=== PATIENT | female | born 1990 | race Caucasian/White ===

== ENCOUNTER → 2017-11-03 13:24 | Outpatient (CLI) | payer OTHER, SELFPAY ==
[2017-11-03 17:42] LABS: Chlamydia Trachomatis by PCR Negative (Negative); Neisserai gonorrhoeae by PCR Negative (Negative); Probe Check PASS; Sample Adequacy Control PASS; Specimen Processing Control PASS
[2017-11-05 12:09] LABS: HPV Reflexed? NOT INDICATED
== END ==
PROVIDERS: Visit Provider Obstetrics & Gynecology
DX: Z12.4 Encounter for screening for malignant neoplasm of cervix (principal); Z11.3 Encounter for screening for infections with a predominantly sexual mode of transmission
CPT/HCPCS: 87491; 87591; 88175; G0145

== ENCOUNTER → 2017-11-26 14:32 | Outpatient (CLI) | payer OTHER, SELFPAY ==
--- NOTE | 2017-11-26 14:32 | DT_ITS ---
This patient was seen during an EMR downtime November 22, 2017 - November 29, 2017. This patient may have a combination of paper and electronic documentation or all paper documentation. All documentation is viewable within the e-chart portion of [facility] for each patient visit.
[2017-11-26 19:06] LABS: Color, Urine YELLOW (Yellow)
[2017-11-26 19:07] LABS: Glucose, Dipstick NEGATIVE (Normal); Ketone-Dipstick Negative (Negative); Urine Bilirubin Dipstick Negative (Negative); Urine Clarity Clear (Clear); Urine pH 6.5 (5.0 - 8.0)
[2017-11-26 19:08] LABS: Leukocyte Esterase-Dipstick Negative /ul (Negative); Nitrite-Dipstick Negative (Negative); Occult Blood-Urine 25 /ul (Negative); Protein-Dipstick Negative (Negative); Urine Urobilinogen Normal (Normal)
[2017-11-26 19:17] LABS: Hematocrit 39.2 % (37-47); Hemoglobin 13.4 g/dl (12.0-15.0); Mean Corp Hgb Conc 34.2 g/gl (32-36); Mean Corpuscular Hgb 31.8 pg (27.0-32.0); Mean Corpuscular Volume 93.1 fL (81-99); RBC Distribution Width CV 13.4 % (11.6-14.6); RBC Distribution Width SD 45.6 fl (35.1-43.9); Red Blood Count 4.21 M/mm3 (4.2-5.4); White Blood Count 10.1 K/mm3 (4.4-11.0)
[2017-11-26 19:18] LABS: Absolute Lymphocyte Count 3.45 X10^3/ul (0.83-4.51); Absolute Neutrophil Count 5.7 X10^3/uL (2.0-7.7); Basophil# 0.02 X10^3/uL; Basophil% 0.2 % (0-1); Eosinophil# 0.08 X10^3/uL; Eosinophils% 0.8 % (0-5); Lymphocyte # 3.45 X10^3/ul (4.0); Lymphocyte % 34.1 % (19-41); Mean Platelet Vol. 12.4 fl (6.2-12.0); Monocyte# 0.78 X10^3/uL; Monocyte% 7.7 % (0-10); Neutrophil # 5.72 X10^3/uL (2.7-7.7); Neutrophil % 56.6 % (47-70); POSITIVE COUNT NO; POSITIVE DIFFERENTIAL NO; POSITIVE MORPHOLOGY NO; Platelet Count 249 K/mm3 (150-450)
[2017-11-27 06:05] LABS: Thyroid Stim Hormone (TSH) < 0.01 uIU/mL (0.358-3.74)
[2017-11-27 06:07] LABS: Amphetamine Urine VISTA NEGATIVE (<1000 ng/mL); Barbiturate Urine VISTA NEGATIVE (< 200 ng/mL); Benzodiazepine Urine VISTA NEGATIVE (< 200 ng/mL); Cocaine Urine VISTA NEGATIVE (< 300 ng/mL); Ecstacy Urine VISTA NEGATIVE (< 500 ng/mL); Methadone Urine VISTA NEGATIVE (< 300 ng/mL); PCP Urine VISTA NEGATIVE (< 25 ng/mL); THC Urine VISTA NEGATIVE (< 50 ng/mL)
[2017-11-29 10:08] LABS: HIV - WCH Non-Reactive (Nonreactive); Rubella IgG 40.5 IU/mL
[2017-12-03 03:47] LABS: Prenatal RPR NONREACTIVE (NONREACTIVE)
[2017-12-03 07:09] LABS: HEPATITIS B SURFACE AG Negative (Negative); Hep C Antibodies <0.1 s/co ratio (0.0-0.9)
== END ==
PROVIDERS: Visit Provider Obstetrics & Gynecology
DX: Z34.81 Encounter for supervision of other normal pregnancy, first trimester (principal)
CPT/HCPCS: 36415; 80307; 81002; 84443; 85025; 86703; 86762; 86803; 87340

== ENCOUNTER → 2017-12-31 14:34 | Outpatient (CLI) | payer OTHER, SELFPAY ==
[2017-12-31 17:10] LABS: Free T3 2.7 pg/mL (2.18-3.98); T4 Free Direct 1.23 ng/dL (0.76-1.46); Thyroid Stim Hormone (TSH) 0.07 uIU/mL (0.358-3.74)
== END ==
PROVIDERS: Visit Provider Obstetrics & Gynecology
DX: O99.282 Endocrine, nutritional and metabolic diseases complicating pregnancy, second trimester (principal); E03.9 Hypothyroidism, unspecified; Z3A.00 Weeks of gestation of pregnancy not specified
CPT/HCPCS: 36415; 84439; 84443; 84481

== ENCOUNTER → 2018-03-28 11:27 | Outpatient (CLI) | payer OTHER, SELFPAY ==
[2018-03-28 13:45] LABS: Hematocrit 35.5 % (37-47); Hemoglobin 11.9 g/dl (12.0-15.0); Mean Corp Hgb Conc 33.5 g/gl (32-36); Mean Corpuscular Hgb 32.6 pg (27.0-32.0); Mean Corpuscular Volume 97.3 fL (81-99); Platelet Count 228 K/mm3 (150-450); RBC Distribution Width CV 13.5 % (11.6-14.6); RBC Distribution Width SD 46.2 fl (35.1-43.9); Red Blood Count 3.65 M/mm3 (4.2-5.4); White Blood Count 14.7 K/mm3 (4.4-11.0)
[2018-03-28 13:48] LABS: Scan Indicated on CBC? Y/N NO
[2018-03-28 14:03] LABS: Free T3 2.6 pg/mL (2.18-3.98); Glucose Challenge Gest 1H 50g 112 mg/dL (70-140); T4 Free Direct 1.15 ng/dL (0.76-1.46); Thyroid Stim Hormone (TSH) 0.23 uIU/mL (0.358-3.74)
== END ==
PROVIDERS: Visit Provider Obstetrics & Gynecology
DX: Z34.82 Encounter for supervision of other normal pregnancy, second trimester (principal)
CPT/HCPCS: 36415; 82950; 84439; 84443; 84481; 85027

== ENCOUNTER → 2018-05-19 09:13 | Outpatient (CLI) | payer OTHER, SELFPAY ==
[2018-05-19 10:49] LABS: T4 Free Direct 1.28 ng/dL (0.76-1.46); Thyroid Stim Hormone (TSH) 0.63 uIU/mL (0.358-3.74)
--- OUTSIDE RECORDS SUMMARY | 2018-07-14 10:15 | XMS RPT_ITS ---
:1990 Author Organization OHIP Care Team Providers Name Role Phone NO PRIMARY CAREMD Primary Care Unavailable KELVIN JORGE Attending Unavailable CARLENE SPANGLER Referring Unavailable NO PRIMARY MD PHANI Primary Care Unavailable KELVIN JORGE Referring Unavailable FERNANDEZ HOFFMAN Attending Unavailable NO PRIMARY CAREMD Primary Care Unavailable KELVIN JORGE Referring Unavailable JUVENTINO HUMMEL Attending Unavailable NO PRIMARY CAREMD Primary Care Unavailable KELVIN JORGE Referring Unavailable HALEY GARZA Attending Unavailable NO PRIMARY CAREMD Primary Care Unavailable KELVIN JORGE Referring Unavailable FERNANDEZ HOFFMAN Attending Unavailable NO PRIMARY CAREMD Primary Care Unavailable KELVIN JORGE Attending Unavailable CARLENE SPANGLER Referring Unavailable NO PRIMARY MD PHANI Primary Care Unavailable CARLENE SPANGLER Referring Unavailable JUVENTINO HUMMEL Attending Unavailable NO PRIMARY MD PHANI Primary Care Unavailable CARLENE SPANGLER Referring Unavailable JUVENTINO HUMMEL Attending Unavailable PROVIDER, UNKNOWN Attending Unavailable PROVIDER, UNKNOWN Referring Unavailable No, PCP Primary Care Unavailable PROVIDER, UNKNOWN Referring Unavailable No, PCP Primary Care Unavailable PROVIDER, UNKNOWN Attending Unavailable Kaikos, Carlene Attending Unavailable Benekos, Carlene Attending Unavailable Benekos, Carlene Attending Unavailable Benekos, Carlene Attending Unavailable Zenia, Kelvin Attending Unavailable Zenia, Kelvin Referring Unavailable Primay Care Physicia, No Primary Care Unavailable Garza, Haley Attending Unavailable Garza, Haley Referring Unavailable Primay Care Physicia, No Primary Care Unavailable PROBLEMS PROBLEMS DATE TYPE CONDITION / CODE ATTENDING STATUS SOURCE 05/30/2018 Unknown Z36.85 - Encounter Garza, Active [place] for [place] Community screening for Hospital Streptococcus B / Repository Z36.85(ICD-10) 05/19/2018 Unknown E05.90 - Zenia, Active [place] Thyrotoxicosis, Kelvin Community unspecified without Hospital thyrotoxic crisis Repository or storm / E05.90(ICD-10) 03/28/2018 Unknown Z34.82 - Encounter Carlene Spangler Active [place] for supervision of Community other normal Hospital , second Repository trimester / Z34.82(ICD-10) 12/31/2017 Unknown E03.9 - Carlene Spangler Active [place] Hypothyroidism, Community unspecified / Hospital E03.9(ICD-10) Repository 12/15/2017 Unknown Z34.81 - Encounter Carlene Spangelr Active [place] for supervision of Community other normal Hospital , first Repository trimester / Z34.81(ICD-10) 11/04/2017 Unknown Z12.4 - Encounter Carlene Spangler Active [place] for screening for Community malignant neoplasm Hospital of cervix / Repository Z12.4(ICD-10) 11/04/2017 Unknown Z11.3 - Encounter Carlene Spangler Active [place] for screening for Community infections with a Hospital predominantly Repository sexual mode of transmission / Z11.3(ICD-10) 10/27/2017 Admitting Mild hyperemesis Unknown [facility] Diagnosis gravidarum / System O21.0(ICD-10) Repository 10/27/2017 Admitting Less than 8 weeks Unknown Active [facility] Diagnosis gestation of System / Repository Z3A.01(ICD-10) 10/27/2017 Admitting Nausea / Unknown Active [facility] Diagnosis R11.0(ICD-10) System Repository 06/28/2017 Admitting Constipation, Unknown Active [facility] Diagnosis unspecified / System K59.00(ICD-10) Repository 06/28/2017 Admitting Generalized Unknown Active [facility] Diagnosis abdominal pain / System R10.84(ICD-10) Repository 06/28/2017 Admitting Unspecified Unknown Active [facility] Diagnosis abdominal pain / System R10.9(ICD-10) Repository PROCEDURES PROCEDURES No Procedure Records FoundRESULTS RESULTS PROGRESS NOTE Observed: 06/06/2018 Status: COMPLETED Source: [place] 2:00 PM [facility] REPOSITORY Routine Visit Subjective: Vida Bearden is a 27 y/o at 37w6d being seen today for her obstetrical visit. She reports irregular contractions. Denies VB, LOF, or decreased FM. Her is now planning a vasectomy. She is accompanied by her mother. Review of Systems Review of Systems Constitutional: Negative. Gastrointestinal: Negative for abdominal pain. Genitourinary: Negative for vaginal bleeding and vaginal discharge. Objective: BP 106/60 Ht 162.6 cm Wt 58.8 kg (129 lb 11.2 oz) LMP 09/14/2017 Physical Exam FHT: Positive (134) Presentation: Cephalic Uterine Size: S=D Pelvic Exam: No pelvic exam this visit US: Estimated weight and amniotic fluid volume are appropriate for gestational age. Assessment/Plan: 27 y.o. at 37w6d with Active Non-Hospital Problems Diagnosis Date Noted heart rate decelerations affecting management of mother 05/16/2018 Resolved 05/23. kick counts recommended. Seek care with any decreased movement. History of 2 sections 05/09/2018 MFM consultation complete. Patient extensively counseled on risks of TOLAC. She expressed understanding of this counseling and is considering her options. She does not want additional children. Patient counseled that the laborist or covering MFM at the time of her delivery may be uncomfortable offering TOLAC. Mode of delivery is at the discretion of the covering physician. She expressed understanding of this counseling. Poor dentition 05/09/2018 Herpes simplex infection during 05/09/2018 Continue Valtrex prophylaxis. Report if prodromal symptoms or outbreak occurs. Former smoker 05/09/2018 Quit after learning of Supervision of high risk in third trimester 05/09/2018 PLAN OF CARE (transfer of care from [facility]) MD/OB APPOINTMENTS Genetic screening: declined How often should patient be evaluated? Q 2 weeks from 28 to 36 weeks then weekly until delivery Work restrictions: None EVALUATION surveillance: PRN Ultrasound: Growth in 4 weeks DELIVERY PLAN Hospital: [facility] per pt (CG) Desires TOLAC GBS culture: 05/30 neg Contraception: plans vasectomy : Yes Would like membrane stripping after 39 weeks Follow up 1 week. Labor precautions reviewed. The total patient time of the visit was 15 minutes, of which greater than 50% of the time was spent counseling and coordinating care. Juventino Hummel, DO PROGRESS NOTE Observed: 05/30/2018 Status: COMPLETED Source: [place] 9:30 AM [facility] REPOSITORY Routine Visit Subjective: Vida Bearden is being seen today for her obstetrical visit. She is at 36w6d gestation. Patient reports no bleeding, no cramping, no leaking, no contractions. No genital HSV lesions or prodromal symptoms. Movement: normal. HPI Review of Systems Review of Systems Objective: BP 118/60 Ht 162.6 cm Wt 58.3 kg (128 lb 9.6 oz) LMP 09/14/2017 Physical Exam FHT: Positive Presentation: Unsure Uterine Size: S=D Pelvic Exam: External genitalia without lesions, GBS culture obtained. Assessment: 27 y.o. at 36w6d with Active Non-Hospital Problems Diagnosis Date Noted heart rate decelerations affecting management of mother 05/16/2018 Auscultated with Doppler today. Resolved 05/23. kick counts recommended. Seek care with any decreased movement. History of 2 sections 05/09/2018 MFM consultation complete. Patient extensively counseled on risks of TOLAC. She expressed understanding of this counseling and is considering her options. She does not want additional children. Patient counseled that the laborist or covering MFM at the time of her delivery may be uncomfortable offering TOLAC. Mode of delivery is at the discretion of the covering physician. She expressed understanding of this counseling. Encounter for trial of labor 05/09/2018 Poor dentition 05/09/2018 Herpes simplex infection during 05/09/2018 Continue Valtrex prophylaxis. Report if prodromal symptoms or outbreak occurs. Former smoker 05/09/2018 Quit after learning of Supervision of high risk in third trimester 05/09/2018 PLAN OF CARE (transfer of care from [facility]) MD/OB APPOINTMENTS Genetic screening: declined How often should patient be evaluated? Q 2 weeks from 28 to 36 weeks then weekly until delivery Work restrictions: None EVALUATION surveillance: PRN Ultrasound: Growth in 4 weeks DELIVERY PLAN Hospital: [facility] per pt (CG) Desires TOLAC GBS culture: 05/30 obtained Contraception: Nexplanon vs OCPs : Yes Would like membrane stripping after 39 weeks Follow up weekly until delivery. information and danger sins in provided on AVS. The total patient time of the visit was 15 minutes, of which greater than 50% of the time was spent counseling and coordinating care. GROUP B STREP DNA Collected: 05/30/2018 Status: F Source: PRECIOUS BY PCR 9:30 AM [facility] REPOSITORY Order Comment: Source: Vaginal-Rectal TYPE CODE TESTS RESULT OUT OF RANGE REFERENCE UNITS LAB L8200.0100 Negative Normal GBS TEST Negative RESULT Performed By: #### L8200.0000 #### [facility] [address] [place], [place], [address] Observed: 05/30/2018 Status: F Source: PRECIOUS CULTURE, GROUP B 12:00 AM [facility] REPOSITORY NOHEMI Culture Group B Beta Streptococcus is not isolated. Performed By: #### M100.1800 #### [facility] [address] [place], [address] PROGRESS NOTE Observed: 05/23/2018 Status: COMPLETED Source: [place] 9:30 AM [facility] REPOSITORY Routine Visit Subjective: Vida Bearden is being seen today for her obstetrical visit. She is at 35w6d gestation. Patient reports no complaints, rare contractions. Movement: normal. She is unaccompanied. Vida denies any cramping, contractions, vaginal bleeding, unusual or increase in vaginal discharge, signs and symptoms of pre-eclampsia, or leaking of any fluid. Patient with positive movement. Review of Systems Review of Systems All other systems reviewed and are negative. Objective: BP 100/60 Ht 162.6 cm Wt 58.3 kg (128 lb 9.6 oz) LMP 09/14/2017 Physical Exam FHT: Positive Presentation: Cephalic Assessment: is at 35w6d gestation. 1. Subclinical Hyperthyroidism. Patient had labs done late last week. Results pending. Requested lab to send. 2. HSV. Patient has yet to start her valtrex. She was encouraged to start. 3. Previous CD X2. Patient now ok with epidural with labor. 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 4. See problem list for concerns not addressed in today's visit. Plan: 1. RTC in 1 week. 2. GBS next visit. 3. Labor precautions reviewed. 4. Start Valtrex. 5. Need lab results for TFTs. The total patient time of the visit was 10 minutes, of which greater than 50% of the time was spent counseling and coordinating care. THYROID STIM HORMONE Collected: 05/19/2018 Status: F Source: PRECIOUS (TSH) 9:27 AM [facility] REPOSITORY TYPE CODE TESTS RESULT OUT OF RANGE REFERENCE UNITS LAB L501.9520 0.358-3.74 uIU/mL Normal TSH 0.63 Performed By: #### L501.9520, L506.0400 #### [facility] [address] [place], [place], [address] T4 FREE DIRECT Collected: 05/19/2018 Status: F Source: PRECIOUS 9:27 AM [facility] REPOSITORY TYPE CODE TESTS RESULT OUT OF RANGE REFERENCE UNITS LAB L506.0400 0.76-1.46 ng/dL Normal T4 FREE 1.28 DIRECT Performed By: #### L501.9520, L506.0400 #### [facility] [address] [place], [address] PROGRESS NOTE Observed: 05/16/2018 Status: COMPLETED Source: [place] 10:00 AM [facility] REPOSITORY Initial Visit Subjective: Vida Bearden is being seen today for her transfer of care visit. She is at 34w6d gestation. She is unaccompanied. Vida denies any cramping, contractions, vaginal bleeding, unusual or increase in vaginal discharge, signs and symptoms of pre-eclampsia, or leaking of any fluid. Patient with positive movement. Denies symptoms of hyperthyroidism. Review of Systems Review of Systems All other systems reviewed and are negative. Objective: BP 110/60 Ht 162.6 cm Wt 57.7 kg (127 lb 4.8 oz) LMP 09/14/2017 Physical Exam Nursing note and vitals reviewed. Constitutional: She appears well-developed and well-nourished. FHT: Positive Audible decel to 110 bpm Presentation: Cephalic Uterine Size: N/A Assessment and Plan: 27 y.o. at 34w6d with Active Non-Hospital Problems Diagnosis Date Noted heart rate decelerations affecting management of mother 05/16/2018 Auscultated with doppler today. BPP performed and was 8/8. FHR ranged 115-118. kick counts recommended. Seek care with any decreased movement. History of 2 sections 05/09/2018 MFM consultation complete. Patient extensively counseled on risks of TOLAC. She expressed understanding of this counseling and is considering her options. She does not want additional children. Patient counseled that the laborist or covering MFM at the time of her delivery may be uncomfortable offering TOLAC. Mode of delivery is at the discretion of the covering physician. She expressed understanding of this counseling. Encounter for trial of labor 05/09/2018 Subclinical hyperthyroidism 05/09/2018 Identified on records obtained after consultation 05/09 Discussed risks associated with . Patient asymptomatic at this time. Repeat labs ordered. Poor dentition 05/09/2018 Herpes simplex infection during 05/09/2018 Will need prophylaxis at 35 weeks Ordered Valtrex. Former smoker 05/09/2018 Quit after learning of Supervision of high risk in third trimester 05/09/2018 PLAN OF CARE (transfer of care from [facility]) MD/OB APPOINTMENTS Genetic screening: How often should patient be evaluated? Q 2 weeks from 28 to 36 weeks then weekly until delivery Work restrictions: None EVALUATION surveillance: PRN Ultrasound: Growth in 4 weeks DELIVERY PLAN Hospital: Undecided. May tour both [facility] and [facility] Desires TOLAC GBS culture: Contraception: BTL versus Vasectomy : Yes Follow up in 1 week. The total patient time of the visit was 15 minutes, of which greater than 50% of the time was spent counseling and coordinating care. PROGRESS NOTE Observed: 05/09/2018 Status: COMPLETED Source: MOUNDS 9:30 AM [facility] REPOSITORY DOS: 05/09/2018 [facility] MATERNAL- MEDICINE CONSULT Referring/Requesting Provider: Carlene Spangler MD PCP: Primary Care, MD Sydney CHIEF COMPLAINT: History of two deliveries, desires HISTORY OF PRESENT ILLNESS: Vida is a 27 y.o. female at 33w6d referred for a Maternal- Medicine consultation regarding her history of two prior sections. At this time, she desires a trial of labor after . Vida was counseled by Dr. Spangler and planned to deliver in [place]. She recently learned this is no longer an option due to hospital insurance. Vida reports her first was due to meconium stained fluid and arrest of descent at 1.5 hours of pushing without FHT concerns. However, a review of her hospital and delivery records states that she pushed for 2 hours with no descent of the infant. In addition, a Category II FHT and chorioamnionitis (confirmed by placenta pathology) were noted. Vida was scheduled for a repeat in her second . She denies any current obstetric complaints and reports normal movement. OB HISTORY: OB History Para Term AB Living 3 2 2 0 0 2 SAB TAB Ectopic Multiple Live Births 0 0 0 0 2 # Outcome Date GA Lbr Rm/2nd Weight Sex Delivery Anes PTL Lv 3 Current 2 Term 05/08/15 41w0d 3.345 kg M CS-Unspec EPI N LILLIAM Complications: Failure to Progress in Second Stage 1 Term 08/27/13 40w0d 3.26 kg M CS-Unspec Spinal N LILLIAM Comments: Pt pushed for 2 hours; Meconium stained fluid Complications: Failure to Progress in Second Stage PAST MEDICAL HISTORY: History reviewed. No pertinent past medical history. PAST SURGICAL HISTORY: Past Surgical History: Procedure Laterality Date JAW SURGERY PERTINENT FAMILY HISTORY: Family History Problem Relation Age of Onset Cancer Father Colon and Liver Cancer Cancer Paternal Grandfather MEDS: Current Outpatient Medications Medication Sig Vit w/Wl-Fvbskhwso-ZU (PNV PO) Take 1 Tab by mouth daily Kkwwzjs-Dggblbyyr-Tstquts D (CALCIUM MAGNESIUM PO) Take 1 Tab by mouth ALLERGY: Allergies Allergen Reactions Hydrocodone-Acetaminophen Nausea And Vomiting REVIEW OF SYSTEMS: As mentioned above and in Subjective, all other Review of Systems reviewed and negative. PHYSICAL EXAM: VITAL SIGNS: BP 90/60 Ht 162.6 cm Wt 56.2 kg (124 lb) LMP 09/14/2017 BMI 21.28 kg/m IMAGING: Estimated weight and amniotic fluid volume are appropriate for gestational age. No gross anatomic defects were detected on today's scan, although resolution of the ductal arch was suboptimal. LABS: No results found for any previous visit. IMPRESSION: Vida is a 27 y.o. female at 33w6d with Patient Active Problem List Diagnosis History of 2 sections Encounter for trial of labor Subclinical hyperthyroidism Poor dentition Herpes simplex infection during Former smoker Supervision of high risk in third trimester RECOMMENDATIONS: History of two sections and desired vaginal after (): Both of Vida's prior deliveries employed a low-transverse uterine incision and a trial of labor in her current is not contraindicated. We discussed the risks and benefits of both elective repeat and trial of labor after (TOLAC). We specifically discussed the risks of uterine rupture (0.9-3.7% with two prior cesareans) with TOLAC, need for urgent delivery, hemorrhage, blood products, and possible need for hysterectomy. Overall, while a successful carries the lowest rate of complications, a failed TOLAC requiring a delivery is associated with a higher rate of complications than that of an elective repeat . Based on the MU prediction model, which has been validated in women with two prior deliveries, Ms. Bearden's chance of achieving is 68-80%. She is aware of the increased chance of success with active labor as well as the increased risk of labor induction. The total patient time of the visit was 30 minutes, of which greater than 50% of the time was spent counseling and coordinating care. Juventino Hummel DO CBC-COMPLETE BLOOD CNT Collected: 03/28/2018 Status: F Source: PRECIOUS NO DIFF 11:30 AM [facility] REPOSITORY TYPE CODE TESTS RESULT OUT OF RANGE REFERENCE UNITS LAB L100.1000 4.4-11.0 K/mm3 High WBC 14.7 LAB L100.1200 4.2-5.4 M/mm3 Low RBC 3.65 LAB L100.1300 12.0-15.0 g/dl Low HGB 11.9 LAB L100.1400 37-47 % Low HCT 35.5 LAB L100.1500 81-99 fL Normal MCV 97.3 LAB L100.1600 27.0-32.0 pg High MCH 32.6 LAB L100.1700 32-36 g/gl Normal MCHC 33.5 LAB L100.1810 11.6-14.6 % Normal RDW CV 13.5 LAB L100.1820 35.1-43.9 fl High RDW SD 46.2 LAB L100.1900 150-450 K/mm3 Normal PLT 228 LAB L100.2000 6.2-12.0 fl High MPV 13.0 Performed By: #### L100.0500 #### [facility] [address] [place], [address] GLUCOSE CHALLENGE GEST Collected: 03/28/2018 Status: F Source: PRECIOUS 1H 50G 11:30 AM [facility] REPOSITORY TYPE CODE TESTS RESULT OUT OF RANGE REFERENCE UNITS LAB L501.0250 70-140 mg/dL Normal GLU GEST 112 50g 1H Performed By: #### L501.0250, L501.08870, L501.9520, L506.0400 #### [facility] [address], [address] FREE T3 Collected: 03/28/2018 Status: F Source: PRECIOUS 11:30 AM [facility] REPOSITORY TYPE CODE TESTS RESULT OUT OF RANGE REFERENCE UNITS LAB L501.11063 2.18-3.98 pg/mL Normal FREE T3 2.6 Performed By: #### L501.0250, L501.58325, L501.9520, L506.0400 #### [facility] [address] [place], [address] THYROID STIM HORMONE Collected: 03/28/2018 Status: F Source: PRECIOUS (TSH) 11:30 AM [facility] REPOSITORY TYPE CODE TESTS RESULT OUT OF RANGE REFERENCE UNITS LAB L501.9520 0.358-3.74 uIU/mL Low TSH 0.23 Performed By: #### L501.0250, L501.86730, L501.9520, L506.0400 #### [facility] [address] [place], [address] T4 FREE DIRECT Collected: 03/28/2018 Status: F Source: PRECIOUS 11:30 AM [facility] REPOSITORY TYPE CODE TESTS RESULT OUT OF RANGE REFERENCE UNITS LAB L506.0400 0.76-1.46 ng/dL Normal T4 FREE 1.15 DIRECT Performed By: #### L501.0250, L501.29916, L501.9520, L506.0400 #### [facility] [address], [address] FREE T3 Collected: 12/31/2017 Status: F Source: PRECIOUS 2:41 PM [facility] REPOSITORY TYPE CODE TESTS RESULT OUT OF RANGE REFERENCE UNITS LAB L501.04394 2.18-3.98 pg/mL Normal FREE T3 2.7 Performed By: #### L501.56486, L501.9520, L506.0400 #### [facility] [address] [place], [address] THYROID STIM HORMONE Collected: 12/31/2017 Status: F Source: PRECIOUS (TSH) 2:41 PM [facility] REPOSITORY TYPE CODE TESTS RESULT OUT OF RANGE REFERENCE UNITS LAB L501.9520 0.358-3.74 uIU/mL Low TSH 0.07 Performed By: #### L501.80668, L501.9520, L506.0400 #### [facility] [place], [address] T4 FREE DIRECT Collected: 12/31/2017 Status: F Source: PRECIOUS 2:41 PM [facility] REPOSITORY TYPE CODE TESTS RESULT OUT OF RANGE REFERENCE UNITS LAB L506.0400 0.76-1.46 ng/dL Normal T4 FREE 1.23 DIRECT Performed By: #### L501.71133, L501.9520, L506.0400 #### [facility] [address] [place], [address] DOWNTIME REPORT Observed: 12/09/2017 Status: F Source: PRECIOUS 2:50 PM [facility] REPOSITORY [facility] Medical Records Department [address] [place] [address] [place] [address] Downtime Report MR#: [id number] Acct: [id number] Name: VIDA BEARDEN Rep #: [id number] : 1990 27 From: Bharathi Samuel PCP: Status: REG CLI This patient was seen during an EMR downtime November 22, 2017 - November 29, 2017. This patient may have a combination of paper and electronic documentation or all paper documentation. All documentation is viewable within the e-chart portion of [employer] for each patient visit. T AND S-NO Collected: 11/26/2017 Status: F Source: [place] CHARGE W/PNP 2:37 PM [facility] REPOSITORY Order Comment: Reason for Type AND Screen/Red Cells: Surgery? N TYPE CODE TESTS RESULT OUT OF RANGE REFERENCE UNITS LAB B10.0800 B Normal BLOOD POSITIVE TYPE GEL LAB B100.4050 Normal Ab SCREEN NEGATIVE GEL Performed By: #### B100.7550 #### [facility] [address] [place], [address] CBC W/DIFF, AUTOMATED Collected: 11/26/2017 Status: F Source: [place] 2:37 PM [facility] REPOSITORY TYPE CODE TESTS RESULT OUT OF RANGE REFERENCE UNITS LAB L100.1000 4.4-11.0 K/mm3 Normal WBC 10.1 LAB L100.1200 4.2-5.4 M/mm3 Normal RBC 4.21 LAB L100.1300 12.0-15.0 g/dl Normal HGB 13.4 LAB L100.1400 37-47 % Normal HCT 39.2 LAB L100.1500 81-99 fL Normal MCV 93.1 LAB L100.1600 27.0-32.0 pg Normal MCH 31.8 LAB L100.1700 32-36 g/gl Normal MCHC 34.2 LAB L100.1810 11.6-14.6 % Normal RDW CV 13.4 LAB L100.1820 35.1-43.9 fl High RDW SD 45.6 LAB L100.1900 150-450 K/mm3 Normal PLT 249 LAB L100.2000 6.2-12.0 fl High MPV 12.4 LAB L100.2100 47-70 % Normal NEUT% 56.6 LAB L100.2200 19-41 % Normal LY% 34.1 LAB L100.2300 0-10 % Normal MONO% 7.7 LAB L100.2400 0-5 % Normal EO% 0.8 LAB L100.2500 0-1 % Normal BASO% 0.2 LAB L100.2550 0.0-0.9 % Normal IM GRAN % 0.600 Result Comment: IG% - Immature Granulocytes (promyelocytes, myelocytes and metamyelocytes) > 1% indicates that a LEFT SHIFT is Present. LAB L100.2620 2.0-7.7 X10 3/uL Normal Absolute Neut 5.7 LAB L100.2720 0.83-4.51 X10 3/ul Normal Absolute Lymph 3.45 Performed By: #### L100.0100 #### [facility] [address] [place], [place], [address] URINALYSIS, ROUTINE Collected: 11/26/2017 Status: F Source: PRECIOUS (DIPSTICK) 2:37 PM [facility] REPOSITORY Order Comment: How was Urine Obtained? Urine, Random TYPE CODE TESTS RESULT OUT OF RANGE REFERENCE UNITS LAB L400.3000 Yellow COLOR Normal YELLOW LAB L400.3050 Clear Normal CLARITY Clear LAB L400.3200 Normal mg/dl Normal GLUCOSE, UR NEGATIVE LAB L400.3300 Negative mg/dL Normal BILIRUBIN URINE Negative LAB L400.3400 Negative mg/dl Normal KETONE UR Negative LAB L400.3465 1.002-1.030 Normal SP.GR. DIPSTX 1.010 LAB L400.3550 5.0 - 8.0 pH UR Normal 6.5 LAB L400.3600 Negative mg/dl PROT Normal DIPSTX Negative LAB L400.3700 Normal mg/dl Normal UROBILI Normal LAB L400.3750 Negative Normal NITRITE UR Negative LAB L400.3780 Negative /ul High 25 OCCULT BLOOD-UR LAB L400.3800 Negative /ul LEUK Normal ESTERASE Negative Performed By: #### L400.2010 #### [facility] [address] [place], [place], [address] THYROID STIM HORMONE Collected: 11/26/2017 Status: F Source: [place] (TSH) 2:37 PM [facility] REPOSITORY Order Comment: 89 TYPE CODE TESTS RESULT OUT OF RANGE REFERENCE UNITS LAB L501.9520 0.358-3.74 uIU/mL Low TSH < 0.01 Performed By: #### L501.9520 #### [facility] [address] [place], [place], [id number] URINE DRUG SCREEN Collected: 11/26/2017 Status: F Source: [place] (VISTA) 2:37 PM [facility] REPOSITORY Order Comment: List of Drugs Taken or Suspected? UNK TYPE CODE TESTS RESULT OUT OF RANGE REFERENCE UNITS LAB L505.0075 TO BE Normal CONFIRMED Result Comment: CONFIRMATORY TESTING FOR ALL POSITIVE URINE DRUG SCREEN RESULTS WILL ONLY BE SENT OUT UPON PHYSICIAN ORDER. VISTA Urine Drug Screen methods provide only preliminary analytical test results. A more specific alternate chemical method must be used in order to obtain a confirmed analytical result. Gas chromatography/mass spectrometery (GC/MS) is the preferred confirmatory method. Clinical consideration and professional judgement should be applied to any drug of abuse test result, particularly when preliminary positive results are used. URINE TCA TESTING MUST BE ORDERED SEPARATELY. USE TEST MNEMONIC: [facility] LAB L505.5005 VISTA UDS PH Test Normal not performed LAB L505.5015 <1000 ng/mL AMPHETAMINES Normal NEGATIVE LAB L505.5025 < 200 ng/mL BARBITIURATES Normal NEGATIVE LAB L505.5035 < 200 ng/mL BENZODIAZIPINE Normal NEGATIVE LAB L505.5045 < 300 ng/mL COCAINE Normal NEGATIVE LAB L505.5055 < 500 ng/mL ECSTACY Normal NEGATIVE LAB L505.5065 < 300 ng/mL METHADONE Normal NEGATIVE LAB L505.5075 < 300 ng/mL OPIATES Normal NEGATIVE LAB L505.5085 < 25 ng/mL PCP Normal NEGATIVE LAB L505.5095 < 50 ng/mL THC Normal NEGATIVE Performed By: #### L505.5000 #### [facility] [address] [address] [place], [place], [id number] RUBELLA IGG Collected: 11/26/2017 Status: F Source: [place] 2:37 PM [facility] REPOSITORY TYPE CODE TESTS RESULT OUT OF RANGE REFERENCE UNITS LAB L509.4000 IU/mL Normal Rubella IgG 40.5 Result Comment: Antibody results Interpretation of Immune Status < 5 IU/ml Presumed Non-immune 5 - < 10 IU/ml Equivocal > or = 10 IU/ml Presumed Immune Performed By: #### L509.4000, L3890.6005 #### [facility] [address] [place], [place], [address] HIV - [facility] Collected: 11/26/2017 Status: F Source: [place] 2:37 PM [facility] REPOSITORY TYPE CODE TESTS RESULT OUT OF RANGE REFERENCE UNITS LAB L3890.6005 Nonreactive Normal HIV - [facility] Non-Reactive Performed By: #### L509.4000, L3890.6005 #### [facility] [address] [place], [place], [id number] RPR Collected: 11/26/2017 Status: F Source: [place] 2:37 PM [facility] REPOSITORY TYPE CODE TESTS RESULT OUT OF REFERENCE UNITS RANGE LAB L700.5100 NONREACTIVE Normal RPR NONREACTIVE Performed By: #### L700.5100 #### [facility] [address] [place], [place], [id number] HEPATITIS B SURFACE Collected: 11/26/2017 Status: F Source: [place] AG 2:37 PM [facility] REPOSITORY TYPE CODE TESTS RESULT OUT OF RANGE REFERENCE UNITS LAB L3100.0400 Negative Normal HB Negative SURF AG Result Comment: Performed at: [facility] [address] [id number] Slider Assembler: Rafiq Lee PhD, Phone: [phone] Performed By: #### L3100.0390, L3100.0625 #### [facility] (refer to report for specific site) refer to report for address and phone number HEPATITIS C ANTIBODIES Collected: 11/26/2017 Status: F Source: [place] 2:37 PM [facility] REPOSITORY TYPE CODE TESTS RESULT OUT OF RANGE REFERENCE UNITS LAB L3100.0650 0.0-0.9 s/co ratio Normal HEP C AB <0.1 Result Comment: Negative: < 0.8 Indeterminate: 0.8 - 0.9 Positive: > 0.9 The CDC recommends that a positive HCV antibody result be followed up with a HCV Nucleic Acid Amplification test (846462). Performed By: #### L3100.0390, L3100.0625 #### [facility] (refer to report for specific site) refer to report for address and phone number CT/NG [facility] BY PCR Collected: 11/03/2017 Status: F Source: [place] 9:30 AM [facility] REPOSITORY TYPE CODE TESTS RESULT OUT OF RANGE REFERENCE UNITS LAB L8200.2100 Negative Normal Chlam Negative Trac PCR LAB L8200.2200 Negative Normal NG by Negative PCR Performed By: #### L8200.1999 #### [facility] [address] 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 of containers..01 ThinPrep Vial TYPE CODE TESTS RESULT OUT OF RANGE REFERENCE UNITS LAB L7400.0800 . Normal DIAGN Comment Result Comment: NEGATIVE FOR INTRAEPITHELIAL LESION AND MALIGNANCY. CELLULAR CHANGES ASSOCIATED WITH INFLAMMATION ARE PRESENT. PREDOMINANCE OF COCCOBACILLI CONSISTENT WITH SHIFT IN VAGINAL EDGAR IS PRESENT. LAB L7400.0900 . Normal ADEQ Comment Result Comment: Satisfactory for evaluation. Endocervical and/or squamous metaplastic cells (endocervical component) are present. LAB L7400.1400 . Normal PERFORM Comment Result Comment: Ivone Pimentel, Rubbing Bed Operator (ASCP) LAB L7400.1720 . Normal Path prov. Comment ICD9 Result Comment: R87.5 LAB L7400.2575 . Normal TEST METHOD Comment Result Comment: This liquid based ThinPrep(R) pap test was screened with the use of an image guided system. LAB L7400.2600 . Normal . COMM LAB L7400.2700 . Normal PAPSMR Comment Result Comment: The Pap smear is a screening test designed to aid in the detection of premalignant and malignant conditions of the uterine cervix. It is not a diagnostic procedure and should not be used as the sole means of detecting cervical cancer. Both false-positive and false-negative reports do occur. LAB L7400.2800 . Normal HPV RFLX Comment Result Comment: The HPV DNA reflex criteria were not met with this specimen result therefore, no HPV testing was performed. Performed at: [facility] Lab[address] [id number] Slider Assembler: Erin iVllasenor MD, Phone: [phone] Performed By: #### L7400.0350 #### [facility] (refer to report for specific site) refer to report for address and phone number Observed: 10/27/2017 Status: F Source: [employer] CULTURE URINE 9:37 PM SYSTEM REPOSITORY Order Comment: Specimen Source Comment:Urine, clean catch CULTURE URINE --> Status: F Normal urogenital edgar present. Performed By: #### C/UR #### [employer] [facility] [address] [place] [id number] [facility] Observed: 09/23/2017 Status: COMPLETED Source: [place] 12:00 AM [facility] [place] REPOSITORY Letter Text Ivone Gonzalez MD [facility] [place] [address] Vida Bearden September 23, 2017 Vida Bearden [address] [place] [address] Dear Ms. Bearden, It was noted that you did not keep your scheduled appointment on September 23, 2017. It is important to contact the office in advance if you are unable to keep your appointment so that it is available for other patients. Your medical care is important to us. Please call our office to reschedule an appointment. Sincerely, Ivone Gonzalez MD CT ABDOMEN/PELVIS W/O Observed: 06/28/2017 Status: F Source: [employer] CONTRAST 1:42 PM SYSTEM REPOSITORY Patient Name: VIDA BEARDEN CT Exam Date/Time 06/28/2017 13:16:[address] Abdomen/Pelvis (No PO, No IV) Ordering Physician MD FANNY, [facility] Accession Number [id number] CPT4 Codes 22803 (CT Abdomen/Pelvis (No PO, No IV)) Reason For Exam ABDOMINAL PAIN Report Study: CT abdomen pelvis. INDICATION: Abdominal pain FINDINGS: Imaging of the abdomen and pelvis were performed without contrast. No comparison. Bowel: Constipation suspected. No free air or abscess. No free fluid. Liver: Unremarkable as seen. Gallbladder: No stones , wall thickening or pericholecystic fluid. Pancreas: Unremarkable as visualized. Spleen: Unremarkable as visualized. Adrenal glands: No masses or thickening. Aorta: No aneurysm. Kidneys , ureters and bladder: No acute process visualized. Retroperitoneum: No adenopathy seen. Pelvic structures:Unremarkable Spine and musculoskeletal: No compression. Lung bases: No consolidation IMPRESSION:Constipation suspected. No acute inflammation or obstruction seen. Report Dictated on Final Dictating Physician: MD KAT JOHN Signed Date and Time: 06/28/2017 1:46 pm Signed by: MD KAT JOHN Transcribed Date and Time: 06/28/2017 1:47 ALLERGIES ALLERGIES DATE TYPE / CODE NAME / CODE REACTION SEVERITY SOURCE 12/19/2012 DRUG/[id number] HYDROCODONE- [place] [address]([facility]) N Repository ENCOUNTERS ENCOUNTERS ADMIT/DISCHARGE ACCOUNT NUMBER ADMITTING ENCOUNTER LOCATION SOURCE CLASS 06/06/2018 [id number] Ambulatory Building:[facility] Repository 06/06/2018 [id number] Ambulatory Building:[facility] Repository 05/30/2018 [id number] Ambulatory [facility] ding:LABSPEC Repository 05/30/2018 [id number] Ambulatory Building:[facility] Repository 05/23/2018 [id number] Ambulatory Building:[facility] Repository 05/19/2018 [id number] Ambulatory [facility] ding:LAB Repository 05/16/2018 [id number] Ambulatory Building:[facility] Repository 05/16/2018/05/16/20 [id number] Ambulatory Building:[address] Repository 05/09/2018/05/09/20 [id number] Ambulatory Building:[address] Repository 05/09/2018/05/09/20 [id number] Ambulatory Building:[address] Repository 03/28/2018 [id number] Ambulatory [facility] ding:WOBLAB Repository 12/31/2017 [id number] Ambulatory [facility] ding:WOBLAB Repository 11/26/2017 [id number] Ambulatory [facility] ding:WOBLAB Repository 11/03/2017 [id number] Ambulatory [facility] ding:LABSPEC Repository 10/27/2017 [id number] [facility] [place] [address] EDRoom: System [id number]: Repository [id number] 06/28/2017 [id number] [address] [place] [address] EDRoom: System [id number]: Repository [id number] PAYERS PAYERS ENCOUNTER GUARANTOR PAYER SUBSCRIBER SOURCE 06/06/2018 VIDA Primary MICHELLE D [facility] COLEDOB: [facility] A Number: [id number] Repository DILLAN [id number] A [place], [place] Date: [place], [place] [address]Kld: [phone] () 06/06/2018 VIDA Primary MICHELLE D [facility] COLEDOB: Insurance[facility] Hospital[facility] A Number: [id number] Repository DILLAN [id number] A [place] Date: [place], [place] [address]Yvj: [phone] (HP) 05/30/2018 MICHELLE COLE86 A Primary MICHELLE COLEUNK Precious CASAREZ Insurance:[place], [place] Number: [facility] [address]Ynr: ([phone]) [id number] Repository [phone] (HP) Date:3621-16-58NN [address] [place]ONICA [place] [address]UN: 05/30/2018 Secondary NOT GIVENUNK [place] Insurance:SELF PAY [facility] Number: Effective Repository Date:2018-05-30 05/30/2018 VIDA Primary MICHELLE D [facility] COLEDOB: Insurance:AETNAPolicy COLEDOB: [facility] A Number: [id number] Repository DILLAN [id number] A [place], [place] Date: [place], [place] [address]Edr: [phone] (HP) 05/23/2018 VIDA Primary MICHELLE D [facility] COLEDOB: Insurance:AETNAPolicy COLEDOB: Hospital A Number: [id number] Repository DILL[place] [id number] A [place], [place] Date: [facility] [address]Pwk: [phone] (HP) 05/19/2018 MICHELLE COLE86 A Primary MICHELLE COLEUNK Precious DILLAN [facility] [place] Number: [facility] [address]Cti: (570) [id number] Repository [phone] (HP) Date:8551-17-19ZL [address], [place] [address]VP: 05/19/2018 Secondary NOT GIVENUNK [place] Insurance:SELF PAY [facility] Number: Effective Repository Date:2018-05-19 05/16/2018 VIDA Primary MICHELLE D [facility] COLEDOB: Insurance:AETNAPolicy COLEDOB: [facility] A Number: [id number] Repository DILLAN [id number] A [place], [place] Date: [place], [place] [address]Xhn: [phone] (HP) 05/16/2018 VIDA Primary MICHELLE D [facility] COLEDOB: Insurance:AETNAPolicy COLEDOB: [facility] A Number: [id number] Repository DILLAN [id number] A D[place], [place] Date: [facility] [place] [address]Stm: [phone] (HP) 05/09/2018 VIDA Primary MICHELLE [facility] COLEDOB: Insurance:[facility] A Number: Repository DILLAN [id number] [place], [place] Date: [address]Ewl: (HP) 05/09/2018 [facility] MICHELLE D [facility] COLEDOB: Insurance:[facility] A Number: Repository [place] [id number] [facility], [place] Date: [address]Llt: () 03/28/2018 MICHELLE COLE86 A Primary MICHELLE COLEUNK Precious DILLAN Insurance:[place] Number: [facility] [address]Osn: . () [id number] Repository Date:2447-04-65MR [address] [place] [address]BZ: 03/28/2018 Secondary NOT GIVENUNK [place] Insurance:SELF PAY [facility] Number: Effective Repository Date:2018-03-28 12/31/2017 VIDAISMAEL BEARDEN86 Primary MICHELLE COLEUNK [place] A DILLAN Insurance:[place] Number: Hospital [address]Ezw: 330 [id number] Repository [phone] () Date:2658-97-59MO [address]CGVERONICA FRIAS [address]GN: 12/31/2017 Secondary NOT GIVENUNK [place] Insurance:SELF PAY [facility] Number: Effective Repository Date:2017-12-31 11/26/2017 VIDA BEARDEN86 Primary MICHELLE COLEUNK Precious A DILLAN [facility] [place] Number: Hospital [address]Ogs: ([phone]) [id number] Repository [phone] () Date:9720-64-65LC [address]VJVEORNICA FRIAS [address]VJ: 11/26/2017 Secondary NOT GIVENUNK [place] Insurance:SELF PAY [facility] Number: Effective Repository Date:2017-11-26 11/03/[address] MICHELLE COLECÉSAR [place] A DILLAN Insurance:AETNAPolicy [place] Number: [facility] [address]Qqy: . ) [id number] Repository Date:3733-17-03WV [address]AIVERONICA FRIAS [address]ED: 11/03/2017 Secondary NOT GIVENUNK Precious Insurance:SELF PAY [facility] Number: Effective Repository Date:2017-11-03 10/27/2017 [facility] ColeDOB: Insurance:AetnaPolicy ColeDOB: System A Number: Effective [id number] Repository [place]illan Date: [place], [place] [address]Zox: () 06/28/2017 [facility] ColeDOB: Insurance:AetnaPolicy ColeDOB: System Number: Effective [id number] Repository [place]illan Date: [place], [place] [address]Phi: ()
== END ==
PROVIDERS: Referring Provider Medical Genetics Clinical Genetics (M.D.); Visit Provider Medical Genetics Clinical Genetics (M.D.)
DX: E05.90 Thyrotoxicosis, unspecified without thyrotoxic crisis or storm (principal)
CPT/HCPCS: 36415; 84439; 84443

== ENCOUNTER → 2018-05-30 13:27 | Outpatient (CLI) | payer OTHER, SELFPAY ==
[2018-05-30 15:17] LABS: Group B Strep DNA By PCR Negative (Negative); Internal Control PASS; Probe Check PASS; Specimen Processing Control PASS
== END ==
DX: Z36.85 Encounter for antenatal screening for Streptococcus B (principal)
CPT/HCPCS: 87081; 87653

== ENCOUNTER → 2020-04-16 12:23 | Outpatient (CLI) | payer OTHER, MEDICAID, SELFPAY ==
[2020-04-16 13:14] LABS: Absolute Lymphocyte Count 3.86 X10^3/uL (0.83-4.51); Absolute Neutrophil Count 6.2 X10^3/uL (2.0-7.7); Basophil# 0.06 X10^3/uL; Basophil% 0.5 % (0-1); Eosinophil# 0.12 X10^3/uL; Eosinophils% 1.1 % (0-5); Hematocrit 47.3 % (37-47); Hemoglobin 15.3 g/dL (12.0-15.0); Lymphocyte # 3.86 X10^3/ul (4.0); Lymphocyte % 35.2 % (19-41); Mean Corp Hgb Conc 32.3 g/dL (32-36); Mean Corpuscular Volume 95.9 fL (81-99); Monocyte# 0.69 X10^3/uL; Monocyte% 6.3 % (0-10); NRBC Flagged by Analyzer 0 % (0-5); Neutrophil # 6.18 X10^3/uL (2.7-7.7); Neutrophil % 56.3 % (47-70); Platelet Count 256 K/mm3 (150-450); RBC Distribution Width SD 46.2 fl (35.1-43.9); Red Blood Count 4.93 M/mm3 (4.2-5.4)
[2020-04-16 13:50] LABS: Vitamin B12 428 pg/mL (211-911); Vitamin D,25 Hydroxy 29.9 ng/mL
[2020-04-16 13:55] LABS: ALB/GLOB Ratio 1.2 RATIO (0.9-2.4); AST(SGOT) 25 U/L (15-37); Alanine Aminotransfer ALT/SGPT 39 U/L (13-56); Albumin, Serum 4.2 g/dL (3.2-5.0); Alkaline Phosphatase 80 U/L (45-117); Anion Gap 7 (5-15); BUN 8 mg/dL (7-18); Calcium,Total 9.6 mg/dL (8.5-10.1); Chloride 111 mmol/L (98-107); Creatinine, Serum 0.72 mg/dL (0.55-1.02); EST Glomerular Filtration Rate 100 mL/min (>60); Est Glom Filt Rate - Afr Amer 121 mL/min (>60); Follicle Stimulating Hormone 3.3 mIU/mL; Globulin 3.4 g/dL (2.2-4.2); Glucose 95 mg/dL (74-106); Iron 48 ug/dL (50-170); Iron Binding Capacity,Total 355 ug/dL (250-450); Luteinizing Hormone 2.8 mIU/mL; Potassium 3.7 mmol/L (3.5-5.1); Protein, Total 7.6 g/dL (6.4-8.2); Sodium Level 141 mmol/L (136-145); Thyroid Stim Hormone (TSH) 0.52 uIU/mL (0.358-3.74)
[2020-04-21 10:42] LABS: Estrogen, Total, Serum 172 pg/mL (.)
== END ==
PROVIDERS: PCP Family Medicine; Referring Provider Family Medicine; Visit Provider Family Medicine
DX: R53.83 Other fatigue (principal)
CPT/HCPCS: 36415; 80053; 82306; 82607; 82672; 83001; 83002; 83540; 83550; 84443; 85025